=== PATIENT | female | born 1935 | race Asian ===

== ENCOUNTER 2017-09-29 18:44 | Emergency (ER) | payer OTHER ==
[~2017-09-29] VITALS: Ht 165.1 cm; Wt 61.2 kg
[~2017-09-29 18:44] MED LIST: AMLODIPINE BESYL5 M1 PO; CALCIUM; ECO81 PO; LIPI10 PO; LOSARTAN PO; LYRICA100 M1 PO; NEU300 PO; QUETIAPINE; RANITIDINE; SYMBICORT
[2017-09-29 18:50] VITALS: Ht 165.1 cm; Wt 61.2 kg
[2017-09-29 21:08] VITALS: BP 140/94
== END 2017-09-29 21:10 | disposition home or self-care (01) ==
LOC: ED 18:44
DX: S30.0XXA Contusion of lower back and pelvis, initial encounter (principal); I10 Essential (primary) hypertension; W01.0XXA Fall on same level from slipping, tripping and stumbling without subsequent striking against object, initial encounter; Y93.89 Activity, other specified; Y99.8 Other external cause status; Y92.89 Other specified places as the place of occurrence of the external cause
CPT/HCPCS: J1885

== ENCOUNTER 2019-03-14 23:49 | Inpatient (IN) | payer OTHER ==
[~2019-03-14] VITALS: Ht 147.3 cm; Wt 61.7 kg
[2019-03-14 23:58] VITALS: Ht 147.3 cm; Wt 61.7 kg
[2019-03-15 01:48] LABS: BASOPHIL % 0.2 % (0-2); PLATELET COUNT 259 x10^3mcL (130-400); RED CELL DISTRIBUTION WIDTH 13.1 % (11.5-14.5)
[2019-03-15 01:53] LABS: ALKALINE PHOSPHATASE 116 U/L (46-116); ALT/SGPT 21 U/L (14-59); AST/SGOT 16 U/L (15-37); BILIRUBIN TOTAL 0.34 mg/dL (0.20-1.00); CALCIUM 8.8 mg/dL (8.5-10.1); CARBON DIOXIDE 27.1 mmol/L (21-32); CHLORIDE SERUM 106 mmol/L (98-107); CREATININE SERUM 0.9 mg/dL (0.6-1.0); GLUCOSE SERUM 211 mg/dL (74-106); SODIUM SERUM 142 mmol/L (136-145); TOTAL PROTEIN, SERUM 7.5 g/dL (6.4-8.2)
[2019-03-15 02:03] LABS: ALBUMIN 3.2 g/dL (3.4-5.0)
[2019-03-15 02:07] LABS: POTASSIUM SERUM 2.6 mmol/L (3.5-5.1)
[2019-03-15 04:45] LABS: CHOLESTEROL/HDL RATIO 3.6; MAGNESIUM 2.1 mg/dL (1.8-2.4); PHOSPHOROUS 2.6 mg/dL (2.5-4.9)
[2019-03-15 05:02] LABS: microscopic required? YES; urine erythrocyte NEGATIVE (NEGATIVE)
[2019-03-15 05:26] VITALS: BP 163/85
[2019-03-15 08:44] VITALS: BP 180/88
[2019-03-15 12:16] VITALS: BP 161/88
[2019-03-15 15:55] VITALS: BP 185/96
[2019-03-15 21:00] VITALS: BP 178/88
[2019-03-15] MEDS ORDERED: ASPIR 8181 MG PO (21:00)
[2019-03-15] MEDS ORDERED: FERROUS SULFAT325 M2 PO (21:01)
[2019-03-15] MEDS ORDERED: DEXILANT60 M1 PO (21:01)
[2019-03-15] MEDS ORDERED: CRESTOR20 M1 PO (21:01)
[2019-03-15] MEDS ORDERED: NOR10 PO (21:02)
[2019-03-15] MEDS ORDERED: OSCD PO (21:02)
[2019-03-15] MEDS ORDERED: SYMBICORT1 AE3 INH (21:03)
[2019-03-15] MEDS ORDERED: SEROQUEL25 MG PO (21:03)
[2019-03-15] MEDS ORDERED: Z PO (21:04)
[2019-03-16 04:40] VITALS: BP 165/92
[2019-03-16 08:41] VITALS: BP 190/103
[2019-03-16 11:42] VITALS: BP 170/82
[2019-03-16 16:04] VITALS: BP 160/80
[2019-03-16 20:04] VITALS: BP 177/101
[2019-03-17 05:53] VITALS: BP 178/91
[2019-03-17 10:03] VITALS: BP 167/90
[2019-03-17 12:39] VITALS: BP 173/101
[2019-03-17 17:53] VITALS: BP 158/89
[2019-03-17 20:47] VITALS: BP 178/103
[2019-03-17 22:11] VITALS: BP 168/85
[2019-03-18 05:42] VITALS: BP 172/91
[2019-03-18 06:51] VITALS: BP 162/93
[2019-03-18] MEDS ORDERED: ELIQUIS2.5 MG PO (08:54)
[2019-03-18 09:16] VITALS: BP 156/89
[2019-03-18 09:25] VITALS: BP 156/89
[2019-03-18 12:39] VITALS: BP 150/75
== END 2019-03-18 18:13 | disposition home or self-care (01) | DRG 301 ==
LOC: ED 23:49 → DU 03-15 02:31
PROVIDERS: Emergency Medicine; ADMIT Internal Medicine
DX: I82.412 Acute embolism and thrombosis of left femoral vein (principal); I16.0 Hypertensive urgency; E11.65 Type 2 diabetes mellitus with hyperglycemia; E87.6 Hypokalemia; E78.5 Hyperlipidemia, unspecified; Z68.29 Body mass index [BMI] 29.0-29.9, adult; Z79.84 Long term (current) use of oral hypoglycemic drugs; Z91.14 Patient's other noncompliance with medication regimen
CPT/HCPCS: 82962; 83880; J0360; J1650; J3480; J7050; Q0092